=== PATIENT | male | born 1975 | race African-American/Black ===

== ENCOUNTER → 2016-09-12 | Outpatient (CLI) | payer OTHER ==
[~2016-09-12] MED LIST: NORCOTAB PO; PERC5TAB6 PO; TYLE325T5 PO; VICO5TAB16 PO
--- NOTE | 2016-09-15 14:43 | SLEEPCENT ---
DATE OF PROCEDURE: 09/12/2016 REQUESTING PROVIDER: Dr. Washington Garrido INTERPRETATION: Nocturnal polysomnography was performed for the titration of pressure therapy in this patient with obstructive sleep apnea syndrome, apnea-hypopnea index of 38. For testing, a Senscient Simplus full face mask of large size was used, 8 cm of water pressure was applied to the circuit and the lights were extinguished. 7 hours and 3 minutes of data were reviewed. There were 347 minutes of sleep identified. Sleep latency was short at 4 minutes. Rapid eye movement (REM) latency was mildly prolonged at 105 minutes. Sleep architecture improved with optimal pressure therapy. Overall sleep efficiency was 84%. The patient's electrocardiogram (EKG) showed a sinus rhythm with an average heart rate of 86 beats per minute. Electroencephalogram (EEG) showed reasonably normal waveforms for awake and sleep. Respiratory events were fully palliated with a continuous positive airway pressure (CPAP) to a pressure of 15. Remaining measures of sleep physiology were reasonably good. There was some activity in the limb leads, but trains of events were not seen. IMPRESSION: Obstructive sleep apnea syndrome (G47.33). RECOMMENDATIONS: Nightly use of pressure therapy at 15 cm of water.
== END ==
LOC: M SLEEP 20:17
PROVIDERS: ATTEND Internal Medicine Pulmonary Disease
DX: G47.33 Obstructive sleep apnea (adult) (pediatric) (principal)

== ENCOUNTER → 2016-11-06 | Outpatient (REF) | payer OTHER ==
[~2016-11-06] MED LIST changes: +PERC5TAB12 PO; -PERC5TAB6 PO
== END ==
LOC: M LAB REF 15:34
PROVIDERS: ATTEND Orthopaedic Surgery
DX: N39.0 Urinary tract infection, site not specified (principal)

== ENCOUNTER → 2017-04-07 | Outpatient (REF) | payer BC | LOC: M SFHCLERA 14:06 | PROVIDERS: ATTEND Nurse Practitioner Family | DX: K29.70 Gastritis, unspecified, without bleeding (principal) ==

== ENCOUNTER → 2017-04-07 | Outpatient (CLI) | payer OTHER, BC ==
--- NOTE | 2017-04-07 13:45 | REP ---
Clinical: Epigastric and abdominal pain. Technique: Upright view of the chest with supine and upright views of the abdomen and pelvis. Findings: Frontal upright view of the chest demonstrates no acute cardiopulmonary process or free air below the diaphragm to suspect pneumoperitoneum. Supine and upright views of the abdomen and pelvis demonstrate nonspecific bowel gas pattern without obstruction or perforation. No organomegaly. No abnormal calcifications. Skeletal structures demonstrate degenerative change at the L3-4 level. Impression: Nonspecific bowel gas pattern. Signed by Lawrence Menon MD 04/07/2017 01:36 P
== END ==
LOC: M LRY 12:52
PROVIDERS: ATTEND Nurse Practitioner Family
DX: R10.9 Unspecified abdominal pain (principal)

== ENCOUNTER → 2018-06-09 | Outpatient (REF) | payer BC | LOC: M SFHCLERA 12:07 | PROVIDERS: ATTEND Physician Assistant | DX: J02.9 Acute pharyngitis, unspecified (principal) ==

== ENCOUNTER → 2019-11-25 | Outpatient (CLI) | payer OTHER ==
[~2019-11-25] MED LIST changes: +ATEN25TA PO; +ATOR80TA59 PO; +CHLO125TA PO; +HYDR-3715 PO; +HYDR-643 PO; +IBUP80TA PO; +LOSA100T50 PO; -NORCOTAB PO; +PRAZ1CAP PO; +SERT-138 PO; -VICO5TAB16 PO; +VICO5TAB17 PO; +VITA50005 PO
== END ==
LOC: M LRY 08:19
PROVIDERS: ATTEND Physician Assistant Medical
DX: Z53.9 Procedure and treatment not carried out, unspecified reason (principal); R94.5 Abnormal results of liver function studies

== ENCOUNTER 2020-01-03 10:13 | Emergency (ER) | payer OTHER ==
[~2020-01-03] VITALS: Ht 193 cm; Wt 142.5 kg
[~2020-01-03 10:13] MED LIST changes: -ATEN25TA PO; -ATOR80TA59 PO; -CHLO125TA PO; -HYDR-643 PO; -IBUP80TA PO; -LOSA100T50 PO; -PRAZ1CAP PO; -SERT-138 PO; -VITA50005 PO
[2020-01-03] MEDS ORDERED: ATOR80TA59 PO (10:30)
[2020-01-03] MEDS ORDERED: VITA50005 PO (10:30)
[2020-01-03] MEDS ORDERED: HYDR-643 PO (10:30)
[2020-01-03] MEDS ORDERED: IBUP80TA PO (10:30)
[2020-01-03] MEDS ORDERED: SERT-138 PO (10:30)
[2020-01-03] MEDS ORDERED: ATEN25TA PO (10:30)
[2020-01-03] MEDS ORDERED: PRAZ1CAP PO (10:30)
--- NOTE | 2020-01-03 11:50 | REPVR ---
PROCEDURE INFORMATION: Exam: XR Chest, 1 View Exam date and time: 01/03/2020 11:36 AM Age: 44 years old Clinical indication: Shortness of breath; Additional info: Dyspnea/cough TECHNIQUE: Imaging protocol: XR of the chest Views: Frontal portable upright view of the chest. COMPARISON: CR ABDOMEN FLAT/UPRIGHT, PA CHEST 04/07/2017 1:15 PM FINDINGS: Tubes, catheters and devices: EKG leads are present overlying the chest. Lungs: The lungs are clear bilaterally. The pulmonary vasculature is normal. Pleural space: No pleural effusion. No pneumothorax. Heart/Mediastinum: The heart is normal in size and contour. Mediastinum: Stable. Diaphragm: The right hemidiaphragm is moderately elevated. Bones/joints: Stable. IMPRESSION: No acute cardiopulmonary abnormality identified. Electronically signed by: Michi Marley On 01/03/2020 11:50:50 AM
[2020-01-03 12:00] LABS: BASO # 0.1 10^3/uL (0.0-0.2); BASO % 1.1 % (0.0-1.0); EOS # 0.3 10^3/uL (0.0-0.5); EOS % 5.7 % (0.0-3.0); HEMATOCRIT 39.1 % (42.0-52.0); HEMOGLOBIN 13.8 g/dl (13.5-17.5); LYMPH # 2.1 10^3/uL (1.5-5.0); LYMPH % 40.8 % (24.0-44.0); MEAN CORPUSCULAR HEMOGLOBIN 32.4 pg (27.0-33.0); MEAN CORPUSCULAR HGB CONC 35.3 g/dl (32.0-36.5); MEAN CORPUSCULAR VOLUME 91.8 fl (80.0-96.0); MONO # 0.6 10^3/uL (0.0-0.8); MONO % 10.7 % (0.0-5.0); NEUTROPHILS # 2.2 10^3/uL (1.5-8.5); NEUTROPHILS % 41.5 % (36.0-66.0); PLATELET COUNT, AUTOMATED 249 10^3/uL (150-450); RED BLOOD COUNT 4.26 10^6/uL (4.30-6.10); WHITE BLOOD COUNT 5.2 10^3/uL (4.0-10.0)
[2020-01-03 12:03] LABS: BILIRUBIN,DIRECT 0.1 MG/DL (0.0-0.2); BILIRUBIN,TOTAL 0.5 MG/DL (0.2-1.0); THYROID STIMULATING HORMONE 3.64 uIU/ML (0.358-3.740); THYROXINE (T4) 9.6 UG/DL (4.5-12.0); TOTAL PROTEIN 8.9 GM/DL (6.4-8.2)
[2020-01-03] MEDS ORDERED: CHLORTHALIDONE 25 MG TAB PO ONE (12:30)
[2020-01-03] MEDS ORDERED: CHLORTHALIDONE 12.5MG PER 1/2 TABLET PO ONE (12:30)
[2020-01-03] MEDS ORDERED: CHLO125TA PO (12:40)
[2020-01-03] MEDS ORDERED: LOSA100T50 PO (12:41)
[2020-01-03 13:06] VITALS: BP 182/111
--- NOTE | 2020-01-22 17:22 | ECGEPIP ---
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
== END 2020-01-03 13:16 | disposition home or self-care (01) ==
LOC: M ED 10:13
DX: J06.9 Acute upper respiratory infection, unspecified (principal); J20.9 Acute bronchitis, unspecified; I10 Essential (primary) hypertension; R94.31 Abnormal electrocardiogram [ECG] [EKG]; I44.0 Atrioventricular block, first degree; F43.10 Post-traumatic stress disorder, unspecified; G47.30 Sleep apnea, unspecified; Z79.899 Other long term (current) drug therapy

== ENCOUNTER 2020-01-05 14:13 | Emergency (ER) | payer OTHER ==
[~2020-01-05] VITALS: Ht 193 cm; Wt 138.8 kg
[~2020-01-05 14:13] MED LIST changes: +ATEN25TA PO; +ATOR80TA59 PO; +CHLO125TA PO; +HYDR-643 PO; +IBUP80TA PO; +LOSA100T50 PO; +PRAZ1CAP PO; +SERT-138 PO; +VITA50005 PO
[2020-01-05 15:20] LABS: BASO # 0.1 10^3/uL (0.0-0.2); BASO % 0.9 % (0.0-1.0); EOS # 0.2 10^3/uL (0.0-0.5); EOS % 2.3 % (0.0-3.0); HEMATOCRIT 43.7 % (42.0-52.0); HEMOGLOBIN 14.8 g/dl (13.5-17.5); LYMPH # 2.7 10^3/uL (1.5-5.0); LYMPH % 27.5 % (24.0-44.0); MEAN CORPUSCULAR HEMOGLOBIN 31.4 pg (27.0-33.0); MEAN CORPUSCULAR HGB CONC 33.9 g/dl (32.0-36.5); MEAN CORPUSCULAR VOLUME 92.8 fl (80.0-96.0); MONO # 0.8 10^3/uL (0.0-0.8); MONO % 8.2 % (0.0-5.0); NEUTROPHILS # 6.1 10^3/uL (1.5-8.5); NEUTROPHILS % 60.8 % (36.0-66.0); PLATELET COUNT, AUTOMATED 272 10^3/uL (150-450); RED BLOOD COUNT 4.71 10^6/uL (4.30-6.10)
[2020-01-05 15:23] LABS: INR 0.99; PROTHROMBIN TIME 13.3 SECONDS (11.8-14.0)
[2020-01-05 15:24] LABS: PARTIAL THROMBOPLASTIN TIME 31.9 SECONDS (25.0-38.4)
[2020-01-05 15:44] LABS: ALBUMIN 4.3 GM/DL (3.2-5.2); ALT/SGPT 84 U/L (12-78); BILIRUBIN,DIRECT 0.2 MG/DL (0.0-0.2); BILIRUBIN,TOTAL 0.6 MG/DL (0.2-1.0); BLOOD UREA NITROGEN 24 MG/DL (7-18); CALCIUM LEVEL 10.5 MG/DL (8.5-10.1); CARBON DIOXIDE LEVEL 26 MEQ/L (21-32); CHLORIDE LEVEL 101 MEQ/L (98-107); CK-MB VALUE MASS 1.9 NG/ML (<3.6); CPK CREATINE PHOSPHOKINASE 329 U/L (39-308); CREATININE FOR GFR 1.98 MG/DL (0.70-1.30); FREE T4 1.12 NG/DL (0.76-1.46); GLOMERULAR FILTRATION RATE 47.6 (>60); GLUCOSE, FASTING 102 MG/DL (70-100); LIPASE 77 U/L (73-393); MB/CK RELATIVE INDEX 0.58 (< OR =4); POTASSIUM SERUM 4.3 MEQ/L (3.5-5.1); SODIUM LEVEL 134 MEQ/L (136-145); TOTAL PROTEIN 8.8 GM/DL (6.4-8.2); TROPONIN I < 0.02 NG/ML (< 0.10)
--- NOTE | 2020-01-05 15:48 | REPVR ---
PROCEDURE INFORMATION: Exam: XR Chest, 1 View Exam date and time: 01/05/2020 3:41 PM Age: 44 years old Clinical indication: Chest pain; Type not specified TECHNIQUE: Imaging protocol: XR of the chest Views: 1 view. COMPARISON: CR PORTABLE CHEST X-RAY 01/03/2020 11:32 AM FINDINGS: Lungs: Unremarkable. No consolidation. Pleural space: Unremarkable. No pleural effusion. No pneumothorax. Heart/Mediastinum: Unremarkable. No cardiomegaly. Bones/joints: Unremarkable. IMPRESSION: No acute findings. Electronically signed by: Verona Bradshaw On 01/05/2020 15:49:08 PM
--- NOTE | 2020-01-05 17:07 | REPVR ---
PROCEDURE INFORMATION: Exam: US Abdomen, Limited; Right Upper Quadrant Exam date and time: 01/05/2020 4:23 PM Age: 44 years old Clinical indication: Abdominal pain; Acute; Additional info: Transaminitis, abd pain TECHNIQUE: Imaging protocol: US abdomen. Real time ultrasound with image documentation. Limited exam focused on the right upper quadrant. COMPARISON: No relevant prior studies available. FINDINGS: Liver: Liver has diffusely slightly increased echogenicity, likely diffuse fatty liver change. No focal area of abnormal echogenicity. Gallbladder: The gallbladder is normal, with no gallstones, sludge, or pericholecystic fluid. Common bile duct: The common bile duct is normal in caliber, measuring 6 mm. Pancreas: Obscured by shadowing bowel gas. Right kidney: The right kidney is normal in size and echogenicity, measuring 11.6 x 4.8 x 4.7 cm. No hydronephrosis. No echogenic shadowing foci to suggest renal calculi. Intraperitoneal space: No free fluid. IMPRESSION: 1. Probable diffuse fatty liver change. 2. No cholelithiasis or evidence of cholecystitis. 3. Pancreas obscured by shadowing bowel gas. Electronically signed by: Verona Bradshaw On 01/05/2020 17:07:43 PM
[2020-01-05 20:58] LABS: CK-MB VALUE MASS 1.9 NG/ML (<3.6); CPK CREATINE PHOSPHOKINASE 314 U/L (39-308); MB/CK RELATIVE INDEX 0.61 (< OR =4); TROPONIN I < 0.02 NG/ML (< 0.10)
[2020-01-05 21:00] VITALS: BP 154/84
--- NOTE | 2020-01-18 09:56 | ECGEPIP ---
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
--- NOTE | 2020-01-18 10:29 | ECGEPIP ---
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
== END 2020-01-05 21:27 | disposition home or self-care (01) ==
LOC: M ED 14:13
DX: I10 Essential (primary) hypertension (principal); R07.89 Other chest pain; I44.0 Atrioventricular block, first degree; E78.5 Hyperlipidemia, unspecified; G47.33 Obstructive sleep apnea (adult) (pediatric); F43.10 Post-traumatic stress disorder, unspecified; Z79.899 Other long term (current) drug therapy

== ENCOUNTER → 2021-06-12 | Outpatient (CLI) | payer BC ==
[~2021-06-12] MED LIST changes: +ERGO500029 PO; +LOSA100T45 PO; -LOSA100T50 PO; -VITA50005 PO
== END ==
LOC: M LABSMTC 10:34
PROVIDERS: ATTEND Family Medicine
DX: Z11.52 Encounter for screening for COVID-19 (principal)
CPT/HCPCS: C9803; U0003

== ENCOUNTER → 2021-06-17 | Outpatient (CLI) | payer OTHER, BC ==
[2021-06-17 11:09] LABS: PLATELET COUNT, AUTOMATED 287 10^3/uL (150-450)
[2021-06-17 11:43] LABS: ALBUMIN 4.2 GM/DL (3.2-5.2); ALT/SGPT 59 U/L (12-78); BILIRUBIN,DIRECT 0.1 MG/DL (0.0-0.2); BILIRUBIN,TOTAL 0.3 MG/DL (0.2-1.0); BLOOD UREA NITROGEN 17 MG/DL (7-18); FERRITIN 287 NG/ML (26-388); GLOMERULAR FILTRATION RATE > 60.0 (>60); IRON (FE) 80 UG/DL (65-175); PERCENT SATURATION 19.2 % (19.7-50.0); TOTAL IRON BINDING CAPACITY 416 UG/DL (250-450); TOTAL PROTEIN 8.4 GM/DL (6.4-8.2)
[2021-06-17 11:44] LABS: PARTIAL THROMBOPLASTIN TIME 36.1 SECONDS (25.9-37.0)
[2021-06-17 11:58] LABS: INR 0.95; PROTHROMBIN TIME 13.1 SECONDS (12.7-14.5)
[2021-06-17 15:13] LABS: HEPATITIS B SURFACE ANTIGEN NEGATIVE (NEGATIVE)
[2021-06-17 15:41] LABS: HEPATITIS C VIRUS ABY INDEX < 0.0 INDEX (<0.8)
[2021-06-20 01:07] LABS: ANTI-MITOCHONDRIAL ANTIBODY <20.0 Units (0.0-20.0); ANTI-SMOOTH MUSCLE ANTIBODY 12 Units (0-19); ANTINUCLEAR ANTIBODIES DIRECT Negative (Negative); HEPATITIS A IgG TOTAL Positive (Negative); HEPATITIS B CORE ANTIBODY IGG Negative (Negative); LIVER-KIDNEY MICROSOMAL ABY <20.1 Units (0.0-20.0)
== END ==
LOC: M LAB 10:19
PROVIDERS: ATTEND Internal Medicine Gastroenterology
DX: R16.0 Hepatomegaly, not elsewhere classified (principal)

== ENCOUNTER → 2021-07-11 | Outpatient (CLI) | payer BC, OTHER | LOC: M LABSMTC 11:21 | PROVIDERS: ATTEND Anesthesiology | DX: Z01.818 Encounter for other preprocedural examination (principal); Z11.52 Encounter for screening for COVID-19 ==

== ENCOUNTER 2021-07-16 09:58 | Day surgery (SDC) | payer OTHER ==
[~2021-07-16] VITALS: Ht 193 cm; Wt 138.8 kg
[~2021-07-16 09:58] MED LIST changes: +NS 1,000 ML IV ONE
[2021-07-16] MEDS ORDERED: propofoL 200 MG/20 ML VIAL As Ordered ONE ×2 (10:03→11:37)
[2021-07-16] MEDS ORDERED: LIDOCAINE 2% 100MG/5ML SDV (FOR ANES.) As Ordered ONE (11:14)
[2021-07-16 12:10] VITALS: BP 162/100
== END 2021-07-16 12:44 | disposition home or self-care (01) ==
LOC: M OPP 09:58
PROVIDERS: ATTEND Internal Medicine Gastroenterology
DX: Z12.11 Encounter for screening for malignant neoplasm of colon (principal); K63.5 Polyp of colon; K62.1 Rectal polyp; K57.30 Diverticulosis of large intestine without perforation or abscess without bleeding; K64.8 Other hemorrhoids; Z79.899 Other long term (current) drug therapy

== ENCOUNTER → 2022-07-24 | Outpatient (CLI) | payer BC, OTHER ==
[~2022-07-24] MED LIST changes: -NS 1,000 ML IV ONE
[2022-07-24 10:04] LABS: FREE T4 1.38 NG/DL (0.89-1.76); RHEUMATOID FACTOR QUANT < 3.5 IU/ML (<14); THYROID STIMULATING HORMONE 2.056 uIU/ML (0.55-4.78); TOTAL T3 134.9 NG/DL (60.0-181.0)
[2022-07-24 10:07] LABS: THYROGLOBULIN ANTIBODY < 15.0 U/ML (<60.0); THYROID PEROXIDASE ANTIBODY 36 U/ML (<60.0)
[2022-07-28 16:08] LABS: ANGIOTENSIN 1 CONVERTING ENZYM 76 U/L (14-82); ANTINUCLEAR ANTIBODIES DIRECT Negative (Negative); LYSOZYME 7.3 ug/mL (3.4-7.6)
== END ==
LOC: M LAB 07:27
DX: D86.9 Sarcoidosis, unspecified (principal)

== ENCOUNTER → 2022-10-27 | Outpatient (CLI) | payer OTHER ==
[~2022-10-27] MED LIST changes: -LOSA100T45 PO; +LOSA100T46 PO
== END ==
LOC: M SOG 07:52
PROVIDERS: ATTEND Orthopaedic Surgery
DX: M25.561 Pain in right knee (principal); M25.562 Pain in left knee

== ENCOUNTER → 2024-02-25 | Outpatient (REF) | payer OTHER ==
[2024-02-25 14:58] LABS: SEMEN APPEARANCE OPAQUE (OPAQUE); SEMEN VISCOSITY LIQUID (LIQUID); SEMEN VOLUME 2.4 ml (2.0-5.0); SPERM CONCENTRATION 59.7 M/ml (>=15.0); WBC CONCENTRATION <=1 M/ml (<=1 M/ml)
== END ==
LOC: M SMT 14:53
PROVIDERS: ATTEND Urology
DX: N46.9 Male infertility, unspecified (principal)

== ENCOUNTER → 2024-08-30 | Outpatient (CLI) | payer OTHER | LOC: M LAB 11:48 | PROVIDERS: ATTEND Urology | DX: R53.83 Other fatigue (principal) ==

== ENCOUNTER → 2025-01-30 | Outpatient (CLI) | payer OTHER ==
[2025-01-30 17:35] LABS: BASO # 0.1 10^3/uL (0.0-0.2); BASO % 0.9 % (0.0-1.0); EOS # 0.3 10^3/uL (0.0-0.5); EOS % 3.8 % (0.0-3.0); LYMPH # 3.3 10^3/uL (1.5-5.0); LYMPH % 40.6 % (24.0-44.0); MONO # 0.9 10^3/uL (0.0-0.8); MONO % 11.3 % (2.0-8.0); NEUTROPHILS # 3.5 10^3/uL (1.5-8.5); NEUTROPHILS % 43.3 % (36.0-66.0); PLATELET COUNT, AUTOMATED 334 10^3/uL (150-450)
[2025-01-30 18:02] LABS: ALT/SGPT 65.0 U/L (7.0-40); AST/SGOT 59.0 U/L (<34); CALCIUM LEVEL 10.3 MG/DL (8.5-10.1); CARBON DIOXIDE LEVEL 28.0 MMOL/L (20-31); CHLORIDE LEVEL 106.0 MMOL/L (98-107); CHOLESTEROL LEVEL 192.0 MG/DL (<200); CHOLESTEROL RISK RATIO 4.87 (<5); CREATININE FOR GFR 1.06 MG/DL (0.70-1.30); GLOMERULAR FILTRATION RATE 86.0 (>60); LDL CHOLESTEROL 108.6 MG/DL (<100); MAGNESIUM LEVEL 1.9 MG/DL (1.8-2.4); NON-HDL-C 152.6 MG/DL; POTASSIUM SERUM 4.4 MMOL/L (3.5-5.1); SODIUM LEVEL 140.0 MMOL/L (136-145); TRIGLYCERIDES LEVEL 220.0 MG/DL (<150)
== END ==
LOC: M EKG 16:43
PROVIDERS: ATTEND Internal Medicine Cardiovascular Disease
DX: I44.0 Atrioventricular block, first degree (principal); I49.1 Atrial premature depolarization; G47.33 Obstructive sleep apnea (adult) (pediatric); E78.00 Pure hypercholesterolemia, unspecified

== ENCOUNTER → 2025-01-31 | Outpatient (CLI) | payer OTHER | LOC: M PLAIMG 08:08 | PROVIDERS: ATTEND Internal Medicine Cardiovascular Disease | DX: R94.31 Abnormal electrocardiogram [ECG] [EKG] (principal); I49.1 Atrial premature depolarization; G47.33 Obstructive sleep apnea (adult) (pediatric) ==

== ENCOUNTER → 2025-01-31 | Outpatient (CLI) | payer OTHER | LOC: M CARPUL 10:57 | PROVIDERS: ATTEND Internal Medicine Cardiovascular Disease | DX: R94.31 Abnormal electrocardiogram [ECG] [EKG] (principal) ==